=== PATIENT | female | born 1955 | race Caucasian/White ===

== ENCOUNTER 2018-06-05 16:12 | Emergency (ER) | payer OTHER ==
[2018-06-05 16:18] VITALS: TEMP 98.6
[2018-06-05] MEDS ORDERED: Naproxen 500 MG TAB PO STA (16:23)
--- NOTE | 2018-06-05 16:37 | ED PDOC ---
Lower Extremity Pain/Injury Time Seen by Provider: 06/05/18 16:18 Chief Complaint (Nursing): Lower Extremity Problem/Injury Chief Complaint (Provider): Lower Extremity Problem/Injury History Per: Patient History/Exam Limitations: no limitations Onset/Duration Of Symptoms: Days Current Symptoms Are (Timing): Still Present Pain Scale Rating Of: 6 Additional Complaint(s): Luz Marina Holman is a 63 year old female with a past medical history of hypertension who is presenting to the ED for evaluation of right ankle pain and swelling onset 2 weeks ago. Patient denies trauma or falls and cannot recall a specific injury. She describes the pain as burning with a pain scale rating of 6/10. 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 She states that the symptoms are worse with ambulation and weight bearing. She adds that she took Tylenol yesterday and offers no other medical complaints at this time. Of note, patient is taking Lisinopril for her hypertension. PMD: Dr. Mcclain Past Medical History Reviewed: Historical Data, Nursing Documentation, Vital Signs Vital Signs: Last Vital Signs Temp 98.6 F 06/05/18 16:15 Pulse 84 06/05/18 16:15 Resp 19 06/05/18 16:15 BP 120/73 06/05/18 16:15 Pulse Ox 98 06/05/18 16:15 - Medical History PMH: Depression, HTN, Hypothyroidism - Surgical History Surgical History: Appendectomy, Cholecystectomy - Family History Family History: States: Unknown Family Hx - Social History Current smoker - smoking cessation education provided: No Alcohol: None Drugs: Denies - Home Medications Home Medications: Ambulatory Orders Medication Instructions Recorded Levothyroxine 75 mcg PO DAILY 04/06/14 Metoprolol 25 mg PO BID 04/06/14 Clindamycin 11/27/14 Enalapril Maleate [Enalapril] 5 mg PO DAILY #30 tab 11/27/14 Naproxen [Naprosyn] 1 tab PO BID PRN #20 tab 02/25/16 Acetaminophen [Acetaminophen 8 650 mg PO Q8 PRN #21 tablet.er 06/05/18 Hour] Meloxicam [Mobic] 15 mg PO DAILY #10 tab 06/05/18 - Allergies Allergies/Adverse Reactions: Allergies Allergy/AdvReac Type Severity Reaction Status Date / Time Penicillins Allergy Intermediate SWELLING Verified 06/05/18 16:15 Review of Systems ROS Statement: Except As Marked, All Systems Reviewed And Found Negative Musculoskeletal: Positive for: Leg Pain (ankle pain ) Physical Exam - Reviewed Nursing Documentation Reviewed: Yes Vital Signs Reviewed: Yes - Physical Exam Comments: GENERAL APPEARANCE: Patient is awake, alert, oriented x 3, in no acute distress. She is resting comfortably. SKIN: Warm, dry; (-) cyanosis. CHEST AND RESPIRATORY: (-) rales, (-) rhonchi, (-) wheezes; breath sounds equal bilaterally. Respirations even and nonlabored. HEART AND CARDIOVASCULAR: (-) irregularity NECK: Supple, FROM ENT: Mucus membranes moist. Right lower extremity: (+) small effusion to medial aspect of ankle with mild tenderness, intact ROM with pain on eversion and plantar flexion (-) ecchymosis , (-) erythema (-) warmth, (-) skin break. Sensation and cap refill intact. (-) calf tenderness (-) palpable cord. Remainder of lower extremity nontender with FROM. NEURO AND PSYCH: Mental status as above; (-) focal findings. Gait: steady. Speech: clear. (-) facial asymmetry (-) aphasia - ECG O2 Sat by Pulse Oximetry: 98 (RA) Pulse Ox Interpretation: Normal Medical Decision Making Medical Decision Making: Time: 16:20 Impression: acute ankle pain/effusion Plan: --Naproxen 500 mg PO --X-ray right ankle --Re-evaluation Date of service: 06/05/2018 PROCEDURE: Right Ankle Radiographs. HISTORY: joint effusion/pain COMPARISON: None FINDINGS: BONES: Normal. No fracture. JOINTS: Normal. No osteoarthritis. Ankle mortise maintained. Talar dome intact SOFT TISSUES: Medial soft tissue swelling. OTHER FINDINGS: None. IMPRESSION: No fracture. 1730 Ralf bandage applied by ED staff. Placement and application verified by Frandy FLORES. NV intact after placement. RICE and podiatry follow up encouraged. On exam, patient remains AAOx3, in no acute distress. Lungs clear to auscultation, cardiac RRR, repeat neuro exam shows no focal findings. Vitals stable. Lab/Diagnostic results d/w the patient in great detail. Diagnosis of acute ankle pain and effusion d/w the patient. Based on history, exam and diagnostic results, plan will be for outpatient follow up with PMD/Podiatry. Patient instructed to follow-up with pmd / referral provided / the clinic in 1- 2 days without fail. Advised to take medication as prescribed. Return to the emergency room at any time for any new or worsening symptoms. Patient states she fully agrees with and understands discharge instructions. States that she agrees with the plan and disposition. Verbalized and repeated discharge instructions and plan. I have given the patient opportunity to ask any additional questions. Scribe Attestation: Documented by Anne-Marie Hannah, acting as a scribe for Faith Wise PA-C. Provider Scribe Attestation: All medical record entries made by the Scribe were at my direction and personally dictated by me. I have reviewed the chart and agree that the record accurately reflects my personal performance of the history, physical exam, medical decision making, and the department course for this patient. I have also personally directed, reviewed, and agree with the discharge instructions and disposition. Disposition - Clinical Impression Clinical Impression: Ankle pain, Ankle effusion - Patient ED Disposition Is Patient to be Admitted: No Counseled Patient/Family Regarding: Studies Performed, Diagnosis, Need For Followup, Rx Given - Disposition Referrals: Podiatry Clinic [Outside] Disposition: Routine/Home Disposition Time: 17:32 Condition: STABLE Additional Instructions: The emergency medical care you received today was directed at your acute symptoms. If you were prescribed any medication, please fill it and take as directed. It may take several days for your symptoms to resolve. Return to the Emergency Department if your symptoms worsen, do not improve, or if you have any other problems. Please contact your doctor in 2 days for re-evaluation and follow up / or call one of the physicians/clinics you have been referred to that are listed on the Patient Visit Information form that is included in your discharge packet. Bring any paperwork you were given at discharge with you along with any medications you are taking to your follow up visit. Our treatment cannot replace ongoing medical care by a primary care provider (PCP) outside of the emergency department. Prescriptions: Acetaminophen [Acetaminophen 8 Hour] 650 mg PO Q8 PRN #21 tablet.er PRN Reason: Pain, Moderate (4-7) Meloxicam [Mobic] 15 mg PO DAILY #10 tab Instructions: Ankle Sprain, How to Use an Elastic Bandage Forms: [facility] (Filipino) Print Language: VATICAN CITIZEN - POA Present On Arrival: None
[2018-06-05] MEDS ORDERED: Naproxen 500 MG TAB PO ONE (16:40)
[2018-06-05 17:52] VITALS: BP 132/72; PULSE 66; RESP 18
--- NOTE | 2018-06-05 18:07 | RAD ---
Date of service: 06/05/2018 PROCEDURE: Right Ankle Radiographs. HISTORY: joint effusion/pain COMPARISON: None FINDINGS: BONES: Normal. No fracture. JOINTS: Normal. No osteoarthritis. Ankle mortise maintained. Talar dome intact SOFT TISSUES: Medial soft tissue swelling. OTHER FINDINGS: None. IMPRESSION: No fracture.
[2018-06-05 20:41] VITALS: O2SAT 98
== END 2018-06-05 17:54 | disposition home or self-care (01) ==
LOC: H.ER 16:12
DX: M25.571 Pain in right ankle and joints of right foot (principal); E03.9 Hypothyroidism, unspecified; I10 Essential (primary) hypertension; Z88.0 Allergy status to penicillin

== ENCOUNTER 2018-07-21 16:08 | Emergency (ER) | payer OTHER ==
[2018-07-21 16:19] VITALS: BP 169/83; PULSE 74; RESP 18; TEMP 98.1; O2SAT 99
--- NOTE | 2018-07-21 18:08 | CP.PCM.CON ---
History of Present Illness - History of Present Illness History of Present Illness: Podiatry consult notes for attending Dr. Meza; 63 year old female with PMH of HTN seen and evaluated in the ED for right ankle pain and swelling onset 2 months ago. Patient dstates that 2 months ago she tripped down and then she started to develop moderate pain and swelling at her right ankle. She states that she came to the ED where X-ray was done and reveals no fractures. She states that she was sent home on Miloxicam tablets and her right ankle wrapped with alpa bandage. Patient states that later on she got ankle support OTC and used it to help her with her ankle pain. Patient describes the pain as discomfort pain. Mild to moderate. Increases with exertion and relieved with rest. Patient states that she used Tylenol also for the pain but it didn't help her. She states that her right ankle swelling went down but it comes back when she works for long time. She also states that there is burning pain on the inner aspect of her right ankle. 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 Patient denies any recent F/N/V/C or SOB. Patient denies any other pedal complaint at this time. PMH: HTN. PSH: Appendectomy and ovarian resection. Allergies: Penicillins Social Hx: Denies smoking, ETOH use and illicit drug use. Review of Systems - Review of Systems Review of Systems: As per HPI - Constitutional Constitutional: As Per HPI Past Patient History - Infectious Disease Hx of Infectious Diseases: None - Tetanus Immunizations Tetanus Immunization: Unknown - Past Medical History & Family History Past Medical History?: Yes - Past Social History Smoking Status: Never Smoked - CARDIAC Hx Hypertension: Yes - PULMONARY Hx Tuberculosis: No - NEUROLOGICAL HX Cerebrovascular Accident: No - HEENT Hx HEENT Problems: No - RENAL Other/Comment: History of Renal Cysts - ENDOCRINE/METABOLIC Hx Hypothyroidism: Yes - HEMATOLOGICAL/ONCOLOGICAL Hx Cancer: No - MUSCULOSKELETAL/RHEUMATOLOGICAL Hx Falls: No - GASTROINTESTINAL Hx Gastrointestinal Disorders: No - GENITOURINARY/GYNECOLOGICAL Hx Genitourinary Disorders: No - PSYCHIATRIC Hx Depression: Yes Hx Substance Use: No - SURGICAL HISTORY Hx Appendectomy: Yes Hx Cholecystectomy: Yes - ANESTHESIA Hx Anesthesia: Yes Hx Anesthesia Reactions: No Hx Malignant Hyperthermia: No Meds Home Medications: Home Medication List Medication Instructions Recorded Confirmed Type RX: Compress.stocking,Knee,Reg,Med 1 each MC DAILY #1 each 07/21/18 Rx [Relief Knee Stocking] RX: Ibuprofen [Ibu] 400 mg PO Q6H PRN 7 Days tablet 07/21/18 Rx Allergies/Adverse Reactions: Allergies Allergy/AdvReac Type Severity Reaction Status Date / Time Penicillins Allergy Intermediate SWELLING Verified 07/21/18 16:17 Physical Exam - Constitutional Appears: Well, Non-toxic, No Acute Distress - Head Exam Head Exam: ATRAUMATIC, NORMOCEPHALIC - Extremities Exam Additional comments: LE focused exam: Vasc: DP/PT 2/4 b/l. Cap refill < 3 sec to all digits. Temp gradient warm to cool from proximal to distal. Moderate non pitting Edema and varicosities noted at the perimalleolar area on the R side. Diffuse varicosities noted to the b/l LE. Calf squeeze didn't illicit pain b/l. Neuro: Gross and protective sensations are intact b/l. Derm: NO open lesions. No clinical signs of active infection. Moderate non pitting Edema and varicosities noted at the perimalleolar area on the R side. MSK: Mild pain on palpating the Right medial malleolous. Foot and ankle passive and active ROM are WNL B/L. Muscle power intact 5/5 b/l. in all groups. Patient couldn't perform strait leg raise test to her R LE. - Neurological Exam Neurological exam: Alert, Oriented x3 - Psychiatric Exam Psychiatric exam: Normal Affect, Normal Mood Results - Vital Signs Recent Vital Signs: Last Vital Signs Temp 98.1 F 07/21/18 16:17 Pulse 74 07/21/18 16:17 Resp 18 07/21/18 16:17 BP 169/83 H 07/21/18 16:17 Pulse Ox 99 07/21/18 16:17 Assessment & Plan - Assessment and Plan (Free Text) Assessment: 63 y/o F patient seen and evaluated in the ED for pain and swelling in her R ankle. Plan: Patient seen and evaluated in the ED. Plan discussed in details with attending Dr. Walsh. Vitals and charts reviewed: Afebrile. R Ankle X-ray reviewed: No osseous anomalies noted. Patient educated RICE protocol. Applied Modified Taylor compression to the patient R ankle. Patient instructed to keep the Taylor compression C/D/I Dispensed R surgical shoe. Patient instructed to ambulate in the surgical shoe. Prescribed Ibuprofen 400 mg tablets Q 8H PRN for pain and inflammation by the ED Dr. Patient advised to get OTC compression stockings and to wear it while she is standing or ambulating after removal of the taylor compression. Patient expressed verbal understanding. Patient to follow up at Dr. Walsh's office. - Date & Time Date: 07/21/18 Time: 18:10
--- NOTE | 2018-07-21 18:20 | ED PDOC ---
Lower Extremity Pain/Injury Time Seen by Provider: 07/21/18 16:49 Chief Complaint (Nursing): Lower Extremity Problem/Injury Chief Complaint (Provider): persistent Right ankle pain History Per: Patient History/Exam Limitations: no limitations Onset/Duration Of Symptoms: Days (1.5 months), Persistent Current Symptoms Are (Timing): Still Present Severity: Moderate Additional History Per: Patient Additional Complaint(s): 63 y/o F with Depression, HTN, hypothyroidism (no longer on meds), and recently diagnosed with Lyme's disease who presents to ED with persistent Right ankle pain. She was seen in ED on 06/05 with ankle pain and swelling, denied trauma. Her ankle X-ray was negative for fracture at the time and was discharged with Meloxicam and Tylenol. She states that she took Meloxicam as prescribed with some improvement in swelling but pain has been unchanged. Pain is worse with standing for long periods of time and develops swelling once she stands for a period as well. She denies any recent trauma since her last ED visit, numbness or tingling of lower extremities, knee pain. She has not seen Podiatry for f/u as she was unaware that she should. Past Medical History Reviewed: Historical Data, Nursing Documentation, Vital Signs Vital Signs: Last Vital Signs Temp 98.1 F 07/21/18 16:17 Pulse 74 07/21/18 16:17 Resp 18 07/21/18 16:17 BP 169/83 H 07/21/18 16:17 Pulse Ox 99 07/21/18 16:17 - Medical History PMH: Depression, HTN, Hypothyroidism - Surgical History Surgical History: Appendectomy, Cholecystectomy - Family History Family History: States: Unknown Family Hx - Immunization History Hx Tetanus Toxoid Vaccination: No Hx Influenza Vaccination: No Hx Pneumococcal Vaccination: No - Home Medications Home Medications: Ambulatory Orders Medication Instructions Recorded Levothyroxine 75 mcg PO DAILY 04/06/14 Metoprolol 25 mg PO BID 04/06/14 Clindamycin 11/27/14 Enalapril Maleate [Enalapril] 5 mg PO DAILY #30 tab 11/27/14 Naproxen [Naprosyn] 1 tab PO BID PRN #20 tab 02/25/16 Acetaminophen [Acetaminophen 8 650 mg PO Q8 PRN #21 tablet.er 06/05/18 Hour] Meloxicam [Mobic] 15 mg PO DAILY #10 tab 06/05/18 Compress.stocking,Knee,Reg,Med 1 each MC DAILY #1 each 07/21/18 [Relief Knee Stocking] Ibuprofen [Ibu] 400 mg PO Q6H PRN 7 Days tablet 07/21/18 - Allergies Allergies/Adverse Reactions: Allergies Allergy/AdvReac Type Severity Reaction Status Date / Time Penicillins Allergy Intermediate SWELLING Verified 07/21/18 16:17 Review of Systems ROS Statement: Except As Marked, All Systems Reviewed And Found Negative Musculoskeletal: Positive for: Other (Right ankle pain and swelling) Physical Exam - Reviewed Nursing Documentation Reviewed: Yes Vital Signs Reviewed: Yes - Physical Exam Appears: Positive for: Well Head Exam: Positive for: ATRAUMATIC Skin: Positive for: Normal Color Eye Exam: Positive for: Normal appearance Neck: Positive for: Normal, Painless ROM, Supple Cardiovascular/Chest: Positive for: Regular Rate, Rhythm Respiratory: Positive for: Normal Breath Sounds Pulses-Dorsalis Pedis (L): 2+ Pulses-Dorsalis Pedis (R): 2+ Gastrointestinal/Abdominal: Positive for: Normal Exam Rectal: Positive for: Other (right ankle with edema and ecchymosis at medial maleolus with multiple visible veins in area. No point tenderness. ) Extremity: Positive for: Normal ROM (normal flexion and extension of Right ankle both passively and actively. ) Neurologic/Psych: Positive for: Alert, Oriented - ECG O2 Sat by Pulse Oximetry: 99 Medical Decision Making Medical Decision Making: Podiatry consult Right ankle x-ray Toradol 30mg IM for pain Right ankle x-ray shows No acute fracture or dislocation Seen by Podiatry. Applied Modified Taylor compression to the patient R ankle. Patient instructed to keep the Taylor compression C/D/I. Dispensed R surgical shoe. Patient instructed to ambulate in the surgical shoe by podiatry. Ok for d/c home w/ podiatry f/u. Disposition - Clinical Impression Clinical Impression: Ankle pain - Patient ED Disposition Is Patient to be Admitted: No Counseled Patient/Family Regarding: Studies Performed, Diagnosis, Need For Followup, Rx Given - Disposition Referrals: Annel Walsh DPM [Staff Provider] - Disposition: Routine/Home Disposition Time: 20:11 Condition: STABLE Additional Instructions: Rest, ice, use compression stockings, elevate Right ankle when able. Tylenol or Ibuprofen for pain. F/u with podiatry for further care. Prescriptions: Compress.stocking,Knee,Reg,Med [Relief Knee Stocking] 1 each MC DAILY #1 each Ibuprofen [Ibu] 400 mg PO Q6H PRN 7 Days tablet PRN Reason: Swelling Forms: [email or web address] (Serbian), [facility] School/Work Excuse Print Language: SPANISH
--- NOTE | 2018-07-21 19:29 | RAD ---
Date of service: 07/21/2018 PROCEDURE: Right Ankle Radiographs. HISTORY: persistent Right ankle pain COMPARISON: None available. FINDINGS: BONES: Diffuse osteopenia suggests relatively extensive osteoporosis. Clinically correlate. No displaced fracture or focal destructive lesion identified. JOINTS: No subluxation or dislocation. Limited cortical sclerosis appreciated at the tibiotalar joint. Ankle mortise maintained. Talar dome intact SOFT TISSUES: Normal. OTHER FINDINGS: None. IMPRESSION: No acute fracture or dislocation right ankle. Diffuse osteopenia suggests osteoporosis. Limited degenerative changes identified.
== END 2018-07-21 20:30 | disposition home or self-care (01) ==
LOC: H.ER 16:08
DX: M25.571 Pain in right ankle and joints of right foot (principal); E03.9 Hypothyroidism, unspecified; I10 Essential (primary) hypertension; Z88.0 Allergy status to penicillin
CPT/HCPCS: 73610; 96372; 99283; J1885

== ENCOUNTER 2019-02-09 16:16 | Emergency (ER) | payer OTHER ==
[2019-02-09 16:31] VITALS: RESP 16
--- NOTE | 2019-02-09 17:04 | ED PDOC ---
Lower Extremity Pain/Injury Time Seen by Provider: 02/09/19 16:38 Chief Complaint (Nursing): Lower Extremity Problem/Injury Chief Complaint (Provider): Right Ankle Pain / Swelling History Per: Patient History/Exam Limitations: no limitations Onset/Duration Of Symptoms: Days (x1 year) Current Symptoms Are (Timing): Still Present Additional Complaint(s): 63 year old female presents to the ED for evaluation of right ankle pain and swelling for the past year. She notes she was initially seen on 06/05/18, then again on 07/21/18 where she was seen by podiatry. She then followed up with podiatry clinic on 08/03/18. At one point, she reports having a soft cast put on the ankle which helped with the pain, but had it taken off at a podiatry clinic appointment. Of note, patient says she has had multiple injuries to the ankle over the past year, her latest three months ago which she has not yet had evaluated. She reports tripping and falling while at work sustaining injury to the right ankle. Pt notes pain and swelling get better with elevation and worse when walking. She was taking antiinflammatories, but none recently. Otherwise, denies numbness and tingling, changes in skin color, prolonged immbolization, recent travel, chest pain, or SOB Of note, pt works here in [employer] and stands for long periods of time. Past Medical History Reviewed: Historical Data, Nursing Documentation, Vital Signs Vital Signs: Last Vital Signs Temp 98.8 F 02/09/19 16:30 Pulse 82 02/09/19 16:30 Resp 16 02/09/19 16:30 BP 154/73 H 02/09/19 16:30 Pulse Ox 97 02/09/19 16:30 Primary Care Provider: Vimal Mcclain R - Medical History PMH: Depression, HTN, Hypothyroidism - Surgical History Surgical History: Appendectomy, Cholecystectomy - Family History Family History: States: Unknown Family Hx - Immunization History Hx Tetanus Toxoid Vaccination: No Hx Influenza Vaccination: No Hx Pneumococcal Vaccination: No - Home Medications Home Medications: Ambulatory Orders Medication Instructions Recorded Levothyroxine 75 mcg PO DAILY 04/06/14 Metoprolol 25 mg PO BID 04/06/14 Clindamycin 11/27/14 Enalapril Maleate [Enalapril] 5 mg PO DAILY #30 tab 11/27/14 Naproxen [Naprosyn] 1 tab PO BID PRN #20 tab 02/25/16 Acetaminophen [Acetaminophen 8 650 mg PO Q8 PRN #21 tablet.er 06/05/18 Hour] Meloxicam [Mobic] 15 mg PO DAILY #10 tab 06/05/18 Compress.stocking,Knee,Reg,Med 1 each MC DAILY #1 each 07/21/18 [Relief Knee Stocking] Ibuprofen [Ibu] 400 mg PO Q6H PRN 7 Days tablet 07/21/18 - Allergies Allergies/Adverse Reactions: Allergies Allergy/AdvReac Type Severity Reaction Status Date / Time Penicillins Allergy Intermediate SWELLING Verified 02/09/19 16:29 Review of Systems ROS Statement: Except As Marked, All Systems Reviewed And Found Negative Musculoskeletal: Positive for: Other (right ankle pain and swelling) Neurological: Negative for: Numbness (or tingling) Physical Exam - Reviewed Nursing Documentation Reviewed: Yes Vital Signs Reviewed: Yes - Physical Exam Comments: GENERAL APPEARANCE: Patient is awake, alert, oriented x 3, in no acute distress. SKIN: Warm, dry; (-) cyanosis. EXTREMITIES: pulses + 2, capillary refill <2sec, RLE: Ankle: full ROM of ankle and all toes, (+) medial malleolus tenderness and swelling, (-) erythema, (-) deformity. No calf tenderness or swelling, Remainder of RLE: non-tender, full ROM with some varicose veins noted to casillas. Capillary refill less than 2 seconds CARDIOVASCULAR: (+) 2+ distal pulse. NEUROLOGIC: (+) distal sensation. - ECG O2 Sat by Pulse Oximetry: 97 (RA) Pulse Ox Interpretation: Normal Medical Decision Making Medical Decision Making: Time: 1653 Initial Impression: r/o fracture of right ankle Initial Plan: --Toradol 30mg IM --Right ankle XR 1800 XR FINDINGS: BONES: No visible fracture. Small plantar calcaneal spur. JOINTS: Normal. No osteoarthritis. Ankle mortise maintained. Talar dome intact SOFT TISSUES: Diffuse soft tissue swelling medially and laterally. OTHER FINDINGS: None. IMPRESSION: Soft tissue swelling without acute articular or osseous abnormality 1811 In light of XR, patient to be placed in alpa bandage and air cast, applied by ED RN. Advised to follow up with podiatry. Pt reports already feeling better with alpa and air cast Discussed results, diagnosis, treatment, return precautions and f/u with pt who is understanding, in agreement and stable for dc Scribe Attestation: Documented by Carmen Szymanski, acting as a scribe for Vikram Green PA-C. Provider Scribe Attestation: All medical record entries made by the Scribe were at my direction and personally dictated by me. I have reviewed the chart and agree that the record accurately reflects my personal performance of the history, physical exam, medical decision making, and the department course for this patient. I have also personally directed, reviewed, and agree with the discharge instructions and disposition. Disposition - Clinical Impression Clinical Impression: Ankle pain, Right ankle sprain - Patient ED Disposition Is Patient to be Admitted: No Counseled Patient/Family Regarding: Studies Performed, Diagnosis, Need For Followup, Rx Given - Disposition Referrals: Annel Walsh DPM [Staff Provider] - Disposition: Routine/Home Disposition Time: 18:30 Condition: IMPROVED Additional Instructions: Thank you for letting us take care of you today. The emergency medical care you received today was directed at your acute symptoms. If you were prescribed any medication, please fill it and take as directed. It may take several days for your symptoms to resolve. Rest, ice and elevate your foot. Wear alpa wrap for compression and air cast for support. Return to the Emergency Department if your symptoms worsen, do not improve, or if you have any other problems. Please contact your doctor in 2 days for re-evaluation and follow up / or call one of the physicians/clinics you have been referred to that are listed on the Patient Visit Information form that is included in your discharge packet. Bring any paperwork you were given at discharge with you along with any medications you are taking to your follow up visit. Our treatment cannot replace ongoing medical care by a primary care provider (PCP) outside of the emergency department. Instructions: Ankle Sprain (DC), Active Range of Motion Exercises, Knees and Ankles, Ankle Strengthening Exercises Forms: [employer] (Rwandan), [facility] School/Work Excuse Print Language: MALTESE - POA Present On Arrival: None
--- NOTE | 2019-02-09 18:05 | RAD ---
Date of service: 02/09/2019 PROCEDURE: Right Ankle Radiographs. HISTORY: medial pain COMPARISON: None available. TECHNIQUE: 3 views obtained. FINDINGS: BONES: No visible fracture. Small plantar calcaneal spur. JOINTS: Normal. No osteoarthritis. Ankle mortise maintained. Talar dome intact SOFT TISSUES: Diffuse soft tissue swelling medially and laterally. OTHER FINDINGS: None. IMPRESSION: Soft tissue swelling without acute articular or osseous abnormality.
[2019-02-09 18:44] VITALS: BP 157/82; PULSE 64; TEMP 97.3
[2019-02-09 21:34] VITALS: O2SAT 97
== END 2019-02-09 18:31 | disposition home or self-care (01) ==
LOC: H.ER 16:16
DX: S93.401A Sprain of unspecified ligament of right ankle, initial encounter (principal); E03.9 Hypothyroidism, unspecified; Z86.59 Personal history of other mental and behavioral disorders; I10 Essential (primary) hypertension; Z88.0 Allergy status to penicillin; M25.571 Pain in right ankle and joints of right foot
CPT/HCPCS: 73610; 96372; 99284; J1885